=== PATIENT | female | born 1965 | race Caucasian/White ===

== ENCOUNTER 2016-07-22 05:57 | Day surgery (SDC) | payer OTHER ==
[2016-07-22] MEDS ORDERED: LIPI40TA PO (07:18)
[2016-07-22] MEDS ORDERED: CHOL1CAP34 PO (07:18)
[2016-07-22] MEDS ORDERED: PANT40TA3 PO (07:18)
[2016-07-22] MEDS ORDERED: FLUO10CA5 PO (07:18)
[2016-07-22] MEDS ORDERED: ATEN50TA PO (07:18)
[2016-07-22] MEDS ORDERED: TOPA25TA8 PO (07:18)
[2016-07-22] MEDS ORDERED: SUMA6P SQ (07:18)
[2016-07-22] MEDS ORDERED: MECL12.574 PO (07:18)
[2016-07-22] MEDS ORDERED: OMEG1CAP53 PO (07:18)
[2016-07-22] MEDS ORDERED: ZOFR4TAB PO (07:18)
[2016-07-22] MEDS ORDERED: IMIT6INJ SQ (07:18)
[2016-07-22] MEDS ORDERED: NITROGLYCERIN 0.4 MG SL 25 TABS/BTL SL ONE (07:21)
--- NOTE | 2016-07-22 08:48 | CT ---
cc: JUAN RYAN MD DATE: 07/22/2016 TILT TABLE TEST The patient underwent tilt table in supine and upright testing. After getting sublingual nitroglycerin the patient experienced a syncopal episode with bradycardia. 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 MD MIGDALIA ChunW/BENNIE /8:24 AM /8:42 AM
== END 2016-07-22 10:09 | disposition home or self-care (01) ==
LOC: HDOC 05:57 → HDIC 05:59 → HDOC 10:09
PROVIDERS: ATTEND Internal Medicine Cardiovascular Disease
DX: R55 Syncope and collapse (principal); R00.1 Bradycardia, unspecified
CPT/HCPCS: 93660